=== PATIENT | male | born 1980 | race Caucasian/White ===

== ENCOUNTER 2016-10-21 14:49 | Emergency (ER) | payer OTHER | END 2016-10-21 15:52 | disposition home or self-care (01) | LOC: FER 14:49 | DX: S30.851A Superficial foreign body of abdominal wall, initial encounter (principal); Z23 Encounter for immunization | CPT/HCPCS: 90471; 90715 ==

== ENCOUNTER 2021-09-11 18:43 | Emergency (ER) | payer OTHER ==
[2021-09-11 19:38] LABS: BASOPHIL 0.7 % (0-2); EOSINOPHIL 0.8 % (0-5); HCT 40.3 % (42.0-52.0); HGB 13.7 g/dl (13.2-18.0); LYMPHOCYTE 29.4 % (15-48); MCH 27.9 pg (25.0-31.0); MCV 82.1 fL (78.0-100.0); MONOCYTE 7.1 % (0-12); MPV 10.4 fL (6.0-9.5); NEUTROPHIL 61.8 % (41-80); NRBC 0; PLT 210 K/uL (150-400); RBC 4.91 M/uL (4.70-6.00); RDW 12.2 % (11.5-14.0); WBC 8.6 K/uL (4.0-10.5)
[2021-09-11 19:55] LABS: BUN/CREAT RATIO (CALC) 14.3 RATIO; CREATININE 0.77 mg/dL (0.67-1.17); POTASSIUM 3.5 mmol/L (3.5-5.1)
[2021-09-11] MEDS ORDERED: PREVACID30 M1 PO (20:52)
[2021-09-11] MEDS ORDERED: CARAFATE1 GM PO (20:52)
== END 2021-09-11 21:16 | disposition home or self-care (01) ==
LOC: FER 18:43
PROVIDERS: Nurse Practitioner Family
DX: K29.70 Gastritis, unspecified, without bleeding (principal)
CPT/HCPCS: 36415; 80048; 85025; 99284

== ENCOUNTER 2021-09-19 09:21 | Emergency (ER) | payer OTHER ==
[~2021-09-19 09:21] MED LIST: CARAFATE1 GM PO; PREVACID30 M1 PO
[2021-09-19 10:26] LABS: BASOPHIL 0.6 % (0-2); EOSINOPHIL 0.6 % (0-5); HCT 40.8 % (42.0-52.0); HGB 14.4 g/dl (13.2-18.0); LYMPHOCYTE 17.4 % (15-48); MCH 28.9 pg (25.0-31.0); MCHC 35.3 g/dL (32.0-36.0); MCV 81.8 fL (78.0-100.0); MONOCYTE 4.4 % (0-12); MPV 10.4 fL (6.0-9.5); NEUTROPHIL 76.4 % (41-80); NRBC 0; PLT 231 K/uL (150-400); RBC 4.99 M/uL (4.70-6.00); RDW 12.4 % (11.5-14.0); WBC 8.7 K/uL (4.0-10.5)
[2021-09-19 10:27] LABS: BILIRUBIN NEGATIVE (NEGATIVE); BLOOD NEGATIVE Ery/uL (NEGATIVE); CLARITY CLEAR (CLEAR); COLOR YELLOW (YELLOW); GLUCOSE (U) NORMAL (NORMAL); LEUKOCYTES NEGATIVE Leu/uL (NEGATIVE); NITRITE NEGATIVE (NEGATIVE); PROTEIN NEGATIVE (NEGATIVE); UROBILINOGEN 0.2 mg/dL (0.2-1.0)
[2021-09-19 10:51] LABS: ALBUMIN 4.2 g/dL (3.4-5.0); BILIRUBIN - TOTAL 0.5 mg/dL (0.2-1.0); BUN/CREAT RATIO (CALC) 12.9 RATIO; CREATININE 0.7 mg/dL (0.67-1.17); GLOBULIN (CALCULATION) 3.5 g/dL; POTASSIUM 3.7 mmol/L (3.5-5.1); TOTAL PROTEIN 7.7 g/dL (6.4-8.2)
[2021-09-19 10:52] LABS: LACTIC ACID 1.1 mmol/L (0.4-1.9)
[2021-09-19] MEDS ORDERED: PEPCID AC20 MG PO (11:17)
[2021-09-19] MEDS ORDERED: PHENERGAN25 M1 PO (11:17)
== END 2021-09-19 11:32 | disposition home or self-care (01) ==
LOC: FER 09:21
PROVIDERS: Emergency Medicine
DX: K21.9 Gastro-esophageal reflux disease without esophagitis (principal); Z87.891 Personal history of nicotine dependence
CPT/HCPCS: 36415; 80053; 81003; 83605; 83690; 84145; 85025; 86677; J2405; J7030